=== PATIENT | male | born 1960 | race Hispanic/Latino ===

== ENCOUNTER 2018-12-02 13:00 | Outpatient (CLI) | payer BC ==
--- NOTE | 2018-12-02 14:34 | CT ---
CT HEAD NONCONTRAST: HISTORY: Headache after injury 10 days ago. FINDINGS: There is no evidence of acute intracranial hemorrhage or infarct. The ventricles appear normal in si ze, shape, and position. An extraaxial area of increased CSF density overlying the left frontal lobe cortex may be contained to a subdural location. No associated hyperdensity. No focal mass effect o f the left frontal gyri. The visualized paranasal sinuses are well aerated. 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 No acute intracranial abnormalities are demonstra sridevi. POS: [facility]
== END 2018-12-02 13:01 | disposition home or self-care (01) ==
LOC: SCSCT 13:00
PROVIDERS: ATTEND Internal Medicine
DX: R51 Headache (principal); R83.8 Other abnormal findings in cerebrospinal fluid
CPT/HCPCS: 70450